=== PATIENT | male | born 1970 | race Caucasian/White ===

== ENCOUNTER → 2025-03-05 10:20 | Outpatient (BNVA) | payer MEDICARE, MEDICAID, SELFPAY | PROVIDERS: PCP Student in an Organized Health Care Education/Training Program; Referring Provider Family Medicine; Visit Provider Podiatrist | DX: L60.3 Nail dystrophy (principal); B35.1 Tinea unguium; M21.372 Foot drop, left foot; R73.03 Prediabetes; M79.674 Pain in right toe(s) | CPT/HCPCS: 99203; 11755 ==